=== PATIENT | female | born 1985 | race Caucasian/White ===

== ENCOUNTER 2018-10-24 21:21 | Emergency (ER) | payer SELFPAY | END 2018-10-24 22:00 | disposition left against medical advice (07) | LOC: ED 21:21 | DX: F10.239 Alcohol dependence with withdrawal, unspecified (principal); Z53.21 Procedure and treatment not carried out due to patient leaving prior to being seen by health care provider ==

== ENCOUNTER 2018-10-28 23:06 | Emergency (ER) | payer MEDICARE ==
[2018-10-29 00:29] LABS: Basophils # (Auto) 0.1 K/mm3 (0.0-0.1); Basophils % (Auto) 0.6 % (0.0-1.8); Eosinophils % (Auto) 0.1 % (0.0-4.3); Hematocrit 45.8 % (30.3-42.9); Hemoglobin 15.6 gm/dl (10.1-14.3); Lymphocytes # (Auto) 1.1 K/mm3 (1.2-5.4); Lymphocytes % (Auto) 14.1 % (13.4-35.0); Mean Corpuscular HGB Conc 34 % (30-34); Mean Corpuscular Volume 91 fl (79-97); Monocytes # (Auto) 0.7 K/mm3 (0.0-0.8); Monocytes % (Auto) 8.4 % (0.0-7.3); Platelet Count 272 K/mm3 (140-440); Red Blood Count 5.05 M/mm3 (3.65-5.03); Red Cell Distribution Width 14.4 % (13.2-15.2)
[2018-10-29 00:44] LABS: BUN/Creatinine Ratio 7; Blood Urea Nitrogen 6 mg/dL (7-17); Calcium 10.6 mg/dL (8.4-10.2); Hemolysis Index 7
[2018-10-29 00:46] LABS: Benzodiazepines Screen,Urine PRESUMPTIVE NEGATIVE; Methadone Screen,Urine PRESUMPTIVE NEGATIVE; Opiate Screen,Urine PRESUMPTIVE NEGATIVE
[2018-10-29 01:00] LABS: Amphetamine Screen,Urine PRESUMPTIVE POSITIVE; Cannabinoid Screen,Urine PRESUMPTIVE POSITIVE; Cocaine Screen,Urine PRESUMPTIVE POSITIVE
[2018-10-29 01:14] LABS: Amorphous Crystals,Urine Few; Bilirubin,Urine NEG (Negative); Blood,Urine LG (Negative); Color,Urine Yellow (Yellow); Hyaline Casts,Urine 22 /LPF; Mucus,Urine FEW /HPF; Urobilinogen,Urine < 2.0 mg/dL (<2.0)
[2018-10-29 02:30] LABS: HCG Qualitative,Urine Negative (Negative)
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
[2018-10-29] MEDS ORDERED: ISENTRESS PO ONE (03:17)
[2018-10-29] MEDS ORDERED: EMTRIVA 200 MG, VIREAD 300 MG PO ONE (03:18)
[2018-10-29 04:15] LABS: Albumin 5.2 g/dL (3.9-5); Bilirubin,Direct 0.4 mg/dL (0-0.2)
[2018-10-29 05:07] VITALS: BP 135/96
[2018-10-29] MEDS ORDERED: GEODON IM ONE (06:03)
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
== END 2018-10-29 15:55 | disposition other institution (70) ==
LOC: ED 23:06
DX: F29 Unspecified psychosis not due to a substance or known physiological condition (principal); T76.21XA Adult sexual abuse, suspected, initial encounter; F14.10 Cocaine abuse, uncomplicated; F12.10 Cannabis abuse, uncomplicated; F60.0 Paranoid personality disorder; F15.10 Other stimulant abuse, uncomplicated; F20.9 Schizophrenia, unspecified; F17.200 Nicotine dependence, unspecified, uncomplicated
CPT/HCPCS: 36415; 80048; 80076; 80307; 81001; 81025; 85025; 96372; 99285; G0480; J3486; 80320

== ENCOUNTER 2019-05-06 13:10 | Outpatient (CLI) | payer MEDICARE | END 2019-05-06 13:11 | disposition home or self-care (01) | LOC: LAB 13:10 | PROVIDERS: ATTEND Psychiatry & Neurology Psychiatry | DX: F33.1 Major depressive disorder, recurrent, moderate (principal) | CPT/HCPCS: 36415; 84703 ==